=== PATIENT | female | born 1990 | race American Indian/Alaskan Native ===

== ENCOUNTER 2017-09-27 00:56 | Emergency (ER) | payer MEDICAID ==
[2017-09-27] MEDS ORDERED: DUONEB *Not for PRN Use IH ONE (07:30)
[2017-09-27] MEDS ORDERED: TYLENOL PO ONE (07:31)
[2017-09-27 08:05] LABS: Bacteria,Urine 1+ /HPF (Negative); Bilirubin,Urine NEG (Negative); Blood,Urine NEG (Negative); Color,Urine Yellow (Yellow); Mucus,Urine 1+ /HPF; Nitrite,Urine NEG (Negative); Protein,Urine <15 mg/dL mg/dL (Negative)
--- NOTE | 2017-09-27 08:23 | Emergency Department Report ---
- General Chief Complaint: Upper Respiratory Infection Stated Complaint: COLD SX Time Seen by Provider: 09/27/17 07:07 Source: patient Mode of arrival: Ambulatory Limitations: No Limitations - History of Present Illness Initial Comments: 27-year-old female past medical history active smoker, currently approximately 3 months presents with complaint of one-week of cough. Patient is awake alert and oriented 3 not in acute distress. States her primary symptom is of cough which is occasionally productive. Patient is speaking in full sentences and no audible wheezing or stridor. Patient is fully lucid and nontoxic appearing. Denies sick contacts. Denies severe fevers or chills denies dysuria or increased urinary frequency but does state that she loses control of her urine slightly after a coughing fit. Patient states she is still actively smoking. MD Complaint: cough, nasal congestion Onset/Timin -: week(s) Severity: moderate Consistency: intermittent Improves With: OTC cold medicine Worsens With: nothing Associated Symptoms: cough - Related Data Home Medications Medication Instructions Recorded Confirmed Last Taken PARoxetine [Paxil] 20 mg PO DAILY 10/27/14 10/27/14 Unknown Previous Rx's Medication Instructions Recorded Last Taken Type ALBUTEROL Inhaler [ProAir HFA 2 puff IH QID PRN #1 inhalation 09/27/17 Unknown Rx Inhaler] Acetaminophen [Acetaminophen TAB] 500 mg PO Q6HR PRN #30 tablet 09/27/17 Unknown Rx Azithromycin [Zithromax Z-MAGDY] 250 mg PO QDAY #1 pack 09/27/17 Unknown Rx Nitrofurantoin Monohyd/M-Cryst 100 mg PO BID #14 capsule 09/27/17 Unknown Rx [Macrobid 100 mg Capsule] diphenhydrAMINE [Benadryl ORAL LIQ] 25 mg PO Q4-6H PRN #1 udc 09/27/17 Unknown Rx Allergies Allergy/AdvReac Type Severity Reaction Status Date / Time No Known Allergies Allergy Unverified 09/16/13 18:50 ED Review of Systems ROS: Stated complaint: COLD SX Other details as noted in HPI Constitutional: denies: chills, fever Eyes: denies: eye pain, eye discharge, vision change ENT: denies: ear pain, throat pain Respiratory: cough (1 week of cough). denies: shortness of breath, wheezing Cardiovascular: denies: chest pain, palpitations Endocrine: no symptoms reported Gastrointestinal: denies: abdominal pain, nausea, diarrhea Genitourinary: denies: urgency, dysuria, discharge Musculoskeletal: denies: back pain, joint swelling, arthralgia Skin: denies: rash, lesions Neurological: denies: headache, weakness, paresthesias Psychiatric: denies: anxiety, depression Hematological/Lymphatic: denies: easy bleeding, easy bruising ED Past Medical Hx - Past Medical History Previous Medical History?: Yes Additional medical history: HEART MURMUR - Surgical History Past Surgical History?: Yes Additional Surgical History: SURGERY ON OVARIES - Social History Smoking Status: Never Smoker Substance Use Type: None - Medications Home Medications: Home Medications Medication Instructions Recorded Confirmed Last Taken Type PARoxetine [Paxil] 20 mg PO DAILY 10/27/14 10/27/14 Unknown History ALBUTEROL Inhaler [ProAir HFA 2 puff IH QID PRN #1 inhalation 09/27/17 Unknown Rx Inhaler] Acetaminophen [Acetaminophen TAB] 500 mg PO Q6HR PRN #30 tablet 09/27/17 Unknown Rx Azithromycin [Zithromax Z-MAGDY] 250 mg PO QDAY #1 pack 09/27/17 Unknown Rx Nitrofurantoin Monohyd/M-Cryst 100 mg PO BID #14 capsule 09/27/17 Unknown Rx [Macrobid 100 mg Capsule] diphenhydrAMINE [Benadryl ORAL LIQ] 25 mg PO Q4-6H PRN #1 udc 09/27/17 Unknown Rx ED Physical Exam - General Limitations: No Limitations General appearance: alert, in no apparent distress - Head Head exam: Present: atraumatic, normocephalic - Eye Eye exam: Present: normal appearance, PERRL, EOMI - ENT ENT exam: Present: mucous membranes moist - Neck Neck exam: Present: normal inspection - Respiratory Respiratory exam: Present: normal lung sounds bilaterally (lungs clear to auscultation bilaterally). Absent: respiratory distress - Cardiovascular Cardiovascular Exam: Present: regular rate, normal rhythm. Absent: systolic murmur, diastolic murmur, rubs, gallop - GI/Abdominal GI/Abdominal exam: Present: soft, normal bowel sounds - Extremities Exam Extremities exam: Present: normal inspection - Back Exam Back exam: Present: normal inspection - Neurological Exam Neurological exam: Present: alert, oriented X3 - Psychiatric Psychiatric exam: Present: normal affect, normal mood - Skin Skin exam: Present: warm, dry, intact, normal color. Absent: rash ED Course Vital Signs 09/27/17 09/27/17 02:09 08:17 Temperature 98.4 F Pulse Rate 92 H Respiratory 18 16 Rate Blood Pressure 115/69 O2 Sat by Pulse 99 Oximetry ED Medical Decision Making - Medical Decision Making A/P: URI, asymptomatic bacteriuria in female, RAD 1-flu swab negative, vital signs stable for discharge 2-follow up with primary care and [employer] 3-I advised patient that her active smoking may lead to congenital defects and/or complications with . Patient stated that she understood the risks of smoking while . Will treat patient empirically for URI with safe symptomatic treatments. As patient is still smoking will also cover her with azithromycin which is safe in (cat B) 4- patient denies any vaginal bleeding or flank pain upon interview Critical care attestation.: If time is entered above; I have spent that time in minutes in the direct care of this critically ill patient, excluding procedure time. ED Disposition Clinical Impression: Viral syndrome, Asymptomatic bacteriuria Upper respiratory infection Qualifiers: URI type: unspecified viral URI Qualified Code(s): J06.9 - Acute upper respiratory infection, unspecified Disposition: DC-01 TO HOME OR SELFCARE Is pt being admited?: No Does the pt Need Aspirin: No Condition: Stable Instructions: Effects of Smoking, Alcohol, and Drugs on (ED), Upper Respiratory Infection (ED), Reactive Airways Disease (ED), Viral Syndrome (ED), Cold Symptoms (ED) Prescriptions: Acetaminophen [Acetaminophen TAB] 500 mg PO Q6HR PRN #30 tablet PRN Reason: Cough ALBUTEROL Inhaler [ProAir HFA Inhaler] 2 puff IH QID PRN #1 inhalation PRN Reason: Shortness Of Breath Azithromycin [Zithromax Z-MAGDY] 250 mg PO QDAY #1 pack diphenhydrAMINE [Benadryl ORAL LIQ] 25 mg PO Q4-6H PRN #1 udc PRN Reason: Cough Nitrofurantoin Monohyd/M-Cryst [Macrobid 100 mg Capsule] 100 mg PO BID #14 capsule Referrals: [facility] [Outside] - 3-5 Days [facility] [Outside] - 3-5 Days Forms: Accompanied Note, Work/School Release Form(ED) Time of Disposition: 08:27
[2017-09-27 08:56] VITALS: BP 105/52
== END 2017-09-27 08:40 | disposition home or self-care (01) ==
LOC: ED 00:56
DX: O99.511 Diseases of the respiratory system complicating pregnancy, first trimester (principal); B34.9 Viral infection, unspecified; R82.71 Bacteriuria; Z3A.12 12 weeks gestation of pregnancy
CPT/HCPCS: 81001; 87086; 87400; 94640